=== PATIENT | male | born 1955 | race Caucasian/White ===

== ENCOUNTER → 2016-09-23 | Outpatient (CLI) | payer OTHER ==
[~2016-09-23] MED LIST: DARVOCET
== END ==
LOC: C.LAB 23:34
DX: Z02.83 Encounter for blood-alcohol and blood-drug test (principal)

== ENCOUNTER 2019-11-27 07:12 | Observation (INO) ==
--- NOTE | 2019-11-23 08:28 | Anesthesiology Consultation ---
Date of Service November 23, 2019 Assessment & Plan (1) Encounter for pre-operative examination: Chart Review Chart Review: Acceptable Risk for Surgery (pending 11/22 Covid testing ) and Patient NOT seen in Pre Admission Testing Per nursing assessment 11/15/19, pt denies recent travel. Wears mask in public. Pt's had negative Covid test- done preoperatively for a surgery. Pt will be getting preop Covid testing 11/23/19. History Surgery Operation Date: 11/27/19 07:00 Proposed Procedures p Laparoscopic Cholecystectomy with Cholangiogram, Possible Open Cholecystectomy with Cholangiogram - Vin Ann MD Height/Weight Height: 5 ft 10.5 in Weight: 108.862 kg Allergies Allergy/AdvReac Type Severity Reaction Status Date / Time codeine AdvReac Intermediate nausea & Verified 11/15/19 14:45 vomiting Medications Home Medications Medication Instructions Recorded Confirmed Last Taken fluticasone propionate [Flonase 2 spray INTRANASAL DAILY 08/22/19 11/15/19 Unknown Allergy Relief] gabapentin 300 mg PO BID 08/22/19 11/15/19 Unknown lisinopril-hydrochlorothiazide 1 tab PO QAM 08/22/19 11/15/19 Unknown magnesium oxide 420 mg PO QPM 08/22/19 11/15/19 Unknown omeprazole 20 mg PO QAM 08/22/19 11/15/19 Unknown multivitamin 1 tab PO QAM 11/12/19 11/15/19 Unknown oxycodone 5 mg capsule 5 mg PO Q8H PRN 11/12/19 11/15/19 Unknown sildenafil 100 mg tablet 100 mg PO DAILY PRN 11/12/19 11/15/19 Unknown potassium gluconate 595 mg PO QAM 11/15/19 11/15/19 Unknown Past Medical History Medical History Arthritis GERD (gastroesophageal reflux disease) Hypertension Hypertension Sciatica Past Family History Family History Mother Heart disease Hypertension Stroke Past Surgical History Surgical History History of colonoscopy History of tonsillectomy History of tooth extraction Social History Smoking Status: Former smoker Do You Dip or Chew Tobacco: No Smoking End Date: 15 YEARS AGO Hx Alcohol Use: Yes Alcohol type: beer alcohol intake frequency: a few times a month Hx Substance Use: Yes substance use type: marijuana Last Used Substance Other:: LAST SMOKED 1 YEAR AGO (ADVISED BY NURSING) Testing Laboratory Results Laboratory Tests 11/22/19 11/22/19 09:55 09:55 WBC 5.42 Hgb 14.4 Hct 42.1 Plt Count 242 Sodium 138 Potassium 4.2 Chloride 104 Carbon Dioxide 29 BUN 21 H Creatinine 0.91 Glucose 119 H Electrocardiogram Date: 11/22/19 Findings: + SB @ (59) Chest X-Ray Date: 11/22/19 Findings: + NAD A 3 mm linear metallic density focus projects over the right upper chest
[~2019-11-27 07:12] MED LIST changes: -DARVOCET; +LR 15ML/HR IV SCH
[2019-11-27] MEDS ORDERED: ATROPINE SULFATE 0.1 MG/ML 10ML SYR IV PRN (07:53)
[2019-11-27] MEDS ORDERED: LABETALOL HCL IV 5 MG/ML 20ML IV PRN (07:53)
[2019-11-27] MEDS ORDERED: ONDANSETRON INJ 2 MG/ML 2 ML VIAL IV PRN ×2 (07:53→11:35)
[2019-11-27] MEDS ORDERED: KETOROLAC 30 MG/ML VIAL IV PRN (07:53)
[2019-11-27] MEDS ORDERED: fentaNYL citrate 100 MCG/2 ML VIAL IV PRN (07:53)
[2019-11-27] MEDS ORDERED: ROCURONIUM BROMIDE 10 MG/ML 5 ML VIAL IV ONE (07:59)
[2019-11-27] MEDS ORDERED: PROPOFOL IV EMULSION 10 MG/ML 20 ML VIAL IV ONE (07:59)
[2019-11-27] MEDS ORDERED: ONDANSETRON INJ 2 MG/ML 2 ML VIAL ONE (07:59)
[2019-11-27] MEDS ORDERED: MIDAZOLAM HCL 1 MG/ML 2ML VIAL ONE (07:59)
[2019-11-27] MEDS ORDERED: fentaNYL citrate 100 MCG/2 ML VIAL ONE (07:59)
[2019-11-27] MEDS ORDERED: LIDOCAINE HCL 2% 2 ML VIAL/AMP(20MG/ML) INFIL ONE (07:59)
[2019-11-27] MEDS ORDERED: LIDOCAINE/EPINEPHRINE 1% 20 ML VIAL ONE (08:05)
--- NOTE | 2019-11-27 08:09 | History & Physical Bridge Note ---
Date of Service November 27, 2019 History & Physical Bridge Note I have examined the patient, reviewed the History & Physical and in the interval since the performance of the History & Physical I have noted the following changes of clinical significance: no changes noted all questions answered
--- NOTE | 2019-11-27 09:34 | Fluoroscopy Report ---
INTRAOPERATIVE CHOLANGIOGRAM HISTORY: Post cholecystectomy. FLUOROSCOPY TIME: 3 seconds. 2 fluoroscopic spot images of the right upper quadrant. FINDINGS: Fluoroscopy was provided for an intraoperative cholangiogram status post cholecystectomy. C ontrast was injected through the cystic duct remnant. The common bile duct is normal in course and ca liber. There are no filling defects seen within the common bile duct to suggest a retained stone. Co ntrast extends into the small bowel. There is no intrahepatic bile duct dilatation. IMPRESSION: Fluoroscopy provided for an intraoperative cholangiogram status post cholecystectomy. No filling defects within the common bile duct. ACT 112: Negative or not required by law. Electronically signed by: Osvaldo Echavarria M.D. 11/27/2019 9:33 AM
--- NOTE | 2019-11-27 10:07 | Post Operative Brief Note ---
PG Immediate Post Op with CF Date of Surgery November 27, 2019 Pre & Post Diagnosis Operation Date: 11/27/19 08:40 Pre-Op Diagnosis: Cholelithiasis Post-Op Diagnosis: Cholelithiasis I identified the patient and participated in the time-out.: Yes Procedure Operation Date: 11/27/19 08:40 Actual Procedures p Laparoscopic Cholecystectomy with Cholangiogram(Not Applicable) - Vin Ann MD Surgeon Vin Ann MD Therapeutic Strategy Lead b rio barba Estimated Blood Loss 100 Findings Consistent with Post-Op Diagnosis Specimens Specimen Description: Permanent Solution: A.) Gallbladder and Contents
--- NOTE | 2019-11-27 10:18 | Operative Report ---
PG Post Operative Report Pre & Post Diagnosis Operation Date: 11/27/19 08:40 Pre-Op Diagnosis: Cholelithiasis Post-Op Diagnosis: Cholelithiasis I identified the patient and participated in the time-out.: Yes Procedure Operation Date: 11/27/19 08:40 Actual Procedures p Laparoscopic Cholecystectomy with Cholangiogram(Not Applicable) - Vin Ann MD Patient was brought into the operating theater supine position general endotracheal anesthesia the abdomen was prepped Betadine solution properly draped timeout was had patient identified made a small incision supraumbilically sufficient to accommodate a 5 mm trocar we entered first with a Veress needle followed by CO2 followed by 5 mm trocar gallbladder has some adhesions we could see on direct visualization we placed a 5 mm epigastric 2 5 mm subcostal ports with preemptive local analgesic 1% Xylocaine the gallbladder has we grasped with the lateral port appeared quite tense tried aspirating with a needle it would not aspirate the bile was very thick at this point we started dissecting out towards the evelyn hepatis and call triangle DIGNA we initially identified an artery coming inferior we doubly clipped and divided the lymph node a DIGNA was actually even inferior to the artery superiorly dissected out the fatty tissue and were able to identify the cystic duct coming off the gallbladder which we clipped small opening cystic duct was made #4 urethral catheter transversing abdominal wall with an Angiocath position the cystic duct serial x-rays were taken showed free flow of the duodenum no obstruction cystic duct was doubly clipped and divided we then continued elevating the gallbladder working underneath it as we elevated there was some fatty tissue coming off the liver bed we cauterized that and it seems to be an artery coming through branching right it underneath the gallbladder that we had elevated we control that with clips and cautery continued elevating the gallbladder off the liver bed trying to leave as much is posterior peritoneum was possible the patient had a propensity just to lose everyplace we touched we controlled most of the bleeding with cautery when we were up about three [address] from the gallbladder and the medial aspect from the gallbladder there was a an area that bled quite briskly and appeared to be venous in nature we had some time controlling this we try clips finally used electrocautery and Surgicel and it seemed to control this. We did lose some blood in these maneuvers. The gallbladder was then elevated completely from the liver the area appeared to be hemostatic we then placed the gallbladder in Endopouch taken out through the epigastric port the bowel was very very thick as we opened the gallbladder and the patient had a very large stone that we fractionated but we needed to enlarge the 5 mm incision in the epigastric port to accommodate and deliver the stone out a window after we have fractionated this point the subhepatic area was checked for hemostasis we suctioned out copiously and appeared hemostatic but due to the continuous oozing and the blood loss that we had elected to drain the area with a Solomon drain which was brought medially and placed subhepatic we taken out through the lateral port attaching skin edge with 2-0 silk. The camera was then a subcostal port to visualize her initial opening and umbilical area and there was free of any adhesions. Wound was closed with the epigastric fascial stitch 2-0 Vicryl times two 4-0 Monocryl Steri-Strips applied procedure was tolerated well by the patient estimated blood loss approximately 100 cc. The liver did not appear cirrhotic but certainly behaves like possibility of some portal hypertension the way that we had this venous bleeder. Addendum Tiffanie barba was present throughout the procedure and helped with exposure retraction camera work and wound closure Surgeon Vin Ann MD Senior Scheduler tiffanie barba Estimated Blood Loss 100 Findings Consistent with Post-Op Diagnosis Specimens gallbladder and contents Description of Procedure merda I attest to the content of the Intraoperative Record and any orders documented therein. Any exceptions are noted below.
[2019-11-27] MEDS ORDERED: OXYCODONE/ACETAMINOPHEN 5mg/325mg TAB PO PRN (11:35)
[2019-11-27] MEDS ORDERED: MoRPHine SULFATE 4 MG/ML 1 ML CARP\\VIAL IV PRN (11:35)
[2019-11-27] MEDS ORDERED: LACTATED RINGER'S 1,000 ML IV SCH (11:35)
[2019-11-27] MEDS ORDERED: MoRPHine SULFATE 10 MG/ML CARP/VIAL IV PRN (11:35)
[2019-11-27 11:56] LABS: Hematocrit (blood only) 42.1 % (42-52)
--- NOTE | 2019-11-27 12:10 | Anesthesiology Progress Note ---
Date of Service November 27, 2019 Anesthesia Post Procedure Vital Signs Vital Signs: Temp Pulse Pulse Pulse Resp BP BP 11/27/19 11:49 36.3 C L 51 L 16 129/81 11/27/19 11:20 36.4 C L 66 16 124/76 11/27/19 11:10 36.4 C L 54 L 16 126/68 11/27/19 11:00 36.4 C L 57 L 16 124/69 11/27/19 10:50 54 L 16 135/72 11/27/19 10:40 59 L 16 150/77 H 11/27/19 10:30 60 14 160/75 H 11/27/19 10:21 36.2 C L 73 18 162/84 H 11/27/19 07:40 36.6 C 82 18 127/92 Pulse Ox 11/27/19 11:49 98 11/27/19 11:20 96 11/27/19 11:10 98 11/27/19 11:00 98 11/27/19 10:50 98 11/27/19 10:40 99 11/27/19 10:30 100 11/27/19 10:21 100 11/27/19 07:40 94 Pain Intensity Abdomen: Pain Intensity: 6 Transfer of Care Handoff Completed per policy Notes Mental Status: alert / awake / arousable and participated in evaluation Patient Amnestic to Procedure: Yes Nausea / Vomiting: adequately controlled Pain: adequately controlled Airway Patency, RR, SpO2: stable & adequate BP & HR: stable & adequate Hydration State: stable & adequate Anesthetic Complications: no major complications apparent and Pt Satisfied with anesthetic care
[2019-11-27] MEDS: OXYCODONE/ACETAMINOPHEN 5mg/325mg TAB PO PRN ×3 (12:46→21:30)
[2019-11-27] MEDS ORDERED: MAGNESIUM OXIDE 400 MG TAB PO SCH (21:00)
[2019-11-27] MEDS: GABAPENTIN 300 MG CAP PO SCH (21:27)
[2019-11-28 06:06] LABS: Eosinophils # (auto) 0.02 K/uL (0-0.5); Eosinophils % (auto) 0.2 %; Hemoglobin 13.6 g/dL (14.0-18.0); Immature Granulocytes # (auto) 0.02 K/uL (0.00-0.02); Immature Granulocytes % (auto) 0.2 %; Lymphocytes # (auto) 1.85 K/uL (1.2-3.4); Lymphocytes % (auto) 17.5 %; Mean Corpuscular Hemoglobin 29.1 pg (25-34); Mean Corpuscular Hgb Conc 33.2 g/dL (32-36); Mean Corpuscular Volume 87.6 fL (80-100); Mean Platelet Volume 10.4 fL (7.4-10.4); Monocytes # (auto) 0.91 K/uL (0.11-0.59); Monocytes % (auto) 8.6 %; Neutrophils # (auto) 7.77 K/uL (1.4-6.5); Neutrophils % (auto) 73.5 %; Platelet Count 227 K/uL (130-400); RDW Coefficient of Variation 13.2 % (11.5-14.5); RDW Standard Deviation 42.1 fL (36.4-46.3); Red Blood Count 4.68 M/uL (4.7-6.1); White Blood Count 10.57 K/uL (4.8-10.8)
[2019-11-28 06:36] LABS: BUN Creatinine Ratio 20.3 (10-20); Calcium 8.8 mg/dl (8.5-10.1); Creatinine Clr Calc Pharmacy 86.6 ml/min; Est GFR (African American) 86.9
--- NOTE | 2019-11-28 07:21 | Surgery Progress Note ---
Date of Service November 28, 2019 Assessment & Plan (1) Cholelithiasis: POD 1 lap monserrat H&H stable seem with Dr. Marissa forrester for d/c Supervising Physician Co-Signing Physician Notes Intraoperative findings was discussed with the patient last evening when we checked on him This morning his hemoglobin is stable minimal drainage through the Solomon drain which is serous sanguinous this was removed We will discharge the patient today instructions will be given Subjective no c/o, tolerating diet Physical Exam Gastrointestinal (Abdomen): Percussion/Palpation: abdomen soft Solomon 40 cc Results & Data Vital Signs (Past 12 Hours) Vital Signs Temp Pulse Resp BP Pulse Ox 11/28/19 03:19 36.4 C L 65 16 120/72 90 11/27/19 23:02 36.4 C L 71 16 124/74 90 PG Care Time/CCT Total # of Minutes Spent Total Time Spent with Patient: Total time spent is greater than 50% in coordination of care (as documented) at patient's floor/unit and/or counseling patient: Coding Level of Care Code None Diagnoses Cholelithiasis K80.20
--- NOTE | 2019-11-28 07:48 | Discharge Summary ---
Date of Service November 28, 2019 Principal Diagnosis Cholelithiaisis Discharge Exam Gastrointestinal (Abdomen) Inspection/Auscultation: + abdominal surgical incision (clean, dry) Percussion/Palpation: abdomen soft solomon drainage serosang Discharge Data Allergies Allergy/AdvReac Type Severity Reaction Status Date / Time codeine AdvReac Intermediate nausea & Verified 11/27/19 08:01 vomiting Procedures Performed Operation Date: 11/27/19 08:40 Actual Procedures p Laparoscopic Cholecystectomy with Cholangiogram(Not Applicable) - Vin Ann MD Ordered Studies 11/27/19 08:40 [place] cholangiogram OR Routine Hospital Course (1) Cholelithiasis: 64 y/o male with cholelithiasis underwent laparoscopic cholecystectomy. We had some bleeding from liver bed, aprroximately 100 cc. Her was observed overnight on the surgical floor. H&H remained stable. Solomon output was serosanguineous and the drain was removed in the morning. He was otherwise doing well and stable for discharge. Total Time Total Time Spent Total Time Spent (In Minutes): 10 Discharge Plan Discharge Items Patient Disposition: Home - Self-Care Reason For Visit: Cholelithiasis Discharge Diagnosis: laparoscopic cholecystectomy Activity: Per Instructions section Lifting: No more than 10 pounds Bathing Comment: may shower tomorrow, 11/28/19. no soaking in tubs Exercise/Sports: Wait until after follow-up appointment Non-emergency contact: Surgeon Call non-emergency contact if: you have any medication questions, your symptoms worsen, your pain is not controlled, your pain is worsening, you have a fever, your temperature is above 101.5, your wound has increased redness, your wound has increased drainage and your wound pain has increased Follow-up/Referrals: Vin Ann MD [Surgeon] - (Please call to schedule follow up in clinic within 1 week) Xiomara Pak PA-C [Primary Care Provider] - Diet: Regular Addtl Attending Provider Instructions: Pending Studies at Discharge: Yes Studies:: surgical pathology Stand-Alone Forms: My [facility] Medications and DC Order Prescriptions: Continued oxycodone 5 mg capsule 5 mg PO Q8H PRN (Reason: Pain) RF: 0 multivitamin Tablet 1 tab PO QAM RF: 0 sildenafil 100 mg tablet 100 mg PO DAILY PRN (Reason: .) RF: 0 potassium gluconate 595 mg (99 mg) Tablet 595 mg PO QAM RF: 0 magnesium oxide 420 mg Tablet 420 mg PO QPM RF: 0 gabapentin 300 mg Capsule 300 mg PO BID RF: 0 omeprazole 20 mg Capsule,Delayed Release(Dr/Ec) 20 mg PO QAM RF: 0 lisinopril-hydrochlorothiazide 10-12.5 mg Tablet 1 tab PO QAM RF: 0 fluticasone propionate [Flonase Allergy Relief] 50 mcg/actuation [place],Suspension 2 spray INTRANASAL DAILY RF: 0 Discharge Orders: Discharge Order (Routine); Ordered 11/28/19 Ordered By: Dakotah Boone Admission Data Admit Date/Time: 11/27/19 10:25 Attending Provider: Vin Ann Admit Provider: Vin Ann Primary Care Provider: Xiomara Pak Coding Level of Care Code D/C Day Management <30 mins Diagnoses Cholelithiasis K80.20
[2019-11-28] MEDS: GABAPENTIN 300 MG CAP PO SCH (08:29)
[2019-11-28] MEDS: OXYCODONE/ACETAMINOPHEN 5mg/325mg TAB PO PRN (08:30)
[2019-11-28] MEDS ORDERED: LISINOPRIL/HCTZ 10/12.5MG TAB PO SCH (09:00)
[2019-11-28] MEDS ORDERED: PANTOprazole 40 MG TAB PO SCH (09:00)
== END 2019-11-28 11:08 | disposition home or self-care (01) ==
LOC: ASU 07:12 → 3W 07:12